=== PATIENT | male | born 1985 | race Caucasian/White ===

== ENCOUNTER 2019-04-04 01:51 | Emergency (ER) | payer SELFPAY ==
[~2019-04-04] VITALS: Ht 167.6 cm; Wt 68.2 kg
[2019-04-04 02:05] VITALS: Ht 167.6 cm; Wt 68.2 kg
[2019-04-04] MEDS ORDERED: ACET-141 PO (02:50)
--- NOTE | 2019-04-04 03:49 | PSY ---
Date/Time of Note Date/Time of Note DATE: 04/04/19 TIME: 12:24 Psychiatric Subjective Eval Consent Pt consented to telemedicine: Yes Subjective Evaluation Patient location: emergency Chief Complaint: BIB RA 881 C/O AUDITORY HALLUCINATIONS X7 HOURS Reason for consult: Disposition and tx recommendations History of present illness Mr. Moise is a 33 yo man who has denied any psychiatric history. He was brought in by EMS after he called 911 saying that he was hearing voices. In the ED he has been noted to be tearful, fearful, distressed. On interview, Mr. Moise says that he started to hear people in the home that he shares says "unspeakable" things about him. He heard them through his closed door. They were threatening to kill him. This led him to call 911. He says that in the ED he has continued to hear voices telling him that he is going to . He appears distraught repeating that he does not want to , that he wants to live. He denies SI. He denies HI. He says that he has never experiencing anything like this before. Started about 8 hours ago. Denies substance use other than o ccasional beer not to excess. UDS negative. Alcohol <10. He says that he did not sleep well recently but insists that he has been feeling fine until earlier today. He appears to be smiling one minute and tearful the next. Past psychiatric history Denied Hospitalization: no Family History none reported Medical history none reported Allergies: Coded Allergies: No Known Allergy (Unverified , 04/04/19) Substance Abuse Substance use: No known substance abuse Substance abuse history: No Prior substance abuse treatmen: No Social History Marital status: Occupation/Half-Way: manual labor Psychiatric Objective Eval Review of Systems: Review of Systems: Not Applicable Physical Examination: Physical Examination: Not Applicable Mental Status Examination: Appearance: Groomed Eye Contact: Other (strong) Psychomotor Activity: Agitated Behavior: Guarded Speech: Pressured AFFECT: Anxious, Intense Mood: Anxious Though Process: Circumstantial Thought Content: Delusions, Hallucinations Suicidal: No Homicidal: No On 72 hour hold: No Orientation: x3 Cognition: Alert Insight: Impared Judgement: Impared Attention Span: Distractible Laboratory Results Laboratory Tests Test 04/04/19 02:04 White Blood Count 9.0 10^3/ul Red Blood Count 5.04 10^6/ul Hemoglobin 16.0 g/dl Hematocrit 47.2 % Mean Corpuscular Volume 93.7 fl Mean Corpuscular Hemoglobin 31.7 pg Mean Corpuscular Hemoglobin Concent 33.9 g/dl Red Cell Distribution Width 14.2 % Platelet Count 188 10^3/UL Mean Platelet Volume 10.4 fl Immature Granulocytes % 0.200 % Neutrophils % 83.7 % Lymphocytes % 10.5 % Monocytes % 5.2 % Eosinophils % 0.0 % Basophils % 0.4 % Nucleated Red Blood Cells % 0.0 /100WBC Immature Granulocytes # 0.020 10^3/ul Neutrophils # 7.6 10^3/ul Lymphocytes # 1.0 10^3/ul Monocytes # 0.5 10^3/ul Eosinophils # 0.0 10^3/ul Basophils # 0.0 10^3/ul Nucleated Red Blood Cells # 0.0 10^3/ul Urine Color YELLOW Urine Clarity CLEAR Urine pH 7.0 Urine Specific [place] 1.010 Urine Ketones TRACE mg/dL Urine Nitrite NEGATIVE mg/dL Urine Bilirubin NEGATIVE mg/dL Urine Urobilinogen 1+ mg/dL Urine Leukocyte Esterase NEGATIVE Tisha/ul Urine Hemoglobin NEGATIVE mg/dL Urine Glucose 1+ mg/dL Urine Total Protein NEGATIVE mg/dl Sodium Level 142 mmol/L Potassium Level 4.0 mmol/L Chloride Level 103 mmol/L Carbon Dioxide Level 26 mmol/L Anion Gap 13 Blood Urea Nitrogen 9 mg/dl Creatinine 0.87 mg/dl Est Glomerular Filtrat Rate mL/min > 60 mL/min Glucose Level 111 mg/dl Calcium Level 9.5 mg/dl Total Bilirubin 0.5 mg/dl Direct Bilirubin 0.00 mg/dl Indirect Bilirubin 0.5 mg/dl Aspartate Amino Transf (AST/SGOT) 52 IU/L Alanine Aminotransferase (ALT/SGPT) 30 IU/L Alkaline Phosphatase 105 IU/L Total Protein 8.4 g/dl Albumin 5.1 g/dl Globulin 3.30 g/dl Albumin/Globulin Ratio 1.54 Salicylates Level < 1.0 mg/dl Urine Opiates Screen Negative Acetaminophen Level < 10.0 ug/ml Urine Barbiturates Negative Urine Amphetamines Screen Negative Urine Benzodiazepines Screen Negative Urine Cocaine Screen Negative Urine Cannabinoids Negative Ethyl Alcohol Level < 10.0 mg/dl Assessment and Plan Assessment/Diagnosis Diagnosis 33 yo man who denies any psychiatric history, presenting with symptoms of psychosis, including AHs and delusional beliefs, and a labile affect, occurring in the context of UDS negative. He insists that these symptoms started within the past year, though reliability is unclear. What is clear is that Mr. Moise is distressed, paranoid, distraught, and meets criteria for 5150 for GD. Admission to inpatient psychiatry indicated for safety and stabilization. Recommendation/Plan Medication Management Start Ativan 1 mg po q6hrs as needed for anxiety, first dose now Start Zyprexa 5 mg po BID for psychosis, first dose now Multiple antipsychotics: No Discharge Disposition: Psychiatric inpatient Legal Status: Place involuntary hold KATERYNA SHEPHERD MD April 04, 2019 03:34
[2019-04-04] MEDS ORDERED: OLANZAPINE 5 MG TAB PO ONE (04:00)
[2019-04-04] MEDS ORDERED: LORAZEPAM 1 MG TAB PO ONE (04:00)
--- NOTE | 2019-04-04 05:49 | ERD ---
ER Documentation Chief Complaint Chief Complaint BIB RA 881 C/O AUDITORY HALLUCINATIONS X7 HOURS HPI 33-year-old male brought in by rescue for auditory changes from 7 hours. Says he was attending to kill himself. Denies history of psychiatric disease. Denies any other current issues ROS All systems reviewed and are negative except as per history of present illness. Medications Home Meds Reported Medications Acetaminophen* (Acetaminophen*) 500 MG Extra Strength Tablet, 500 MG PO Q4H PRN for PAIN AND OR ELEVATED TEMP, TAB 04/04/19 Allergies Allergies: Coded Allergies: No Known Allergy (Unverified , 04/04/19) PMhx/Soc Medical and Surgical Hx: pt denies Medical Hx, pt denies Surgical Hx Hx Alcohol Use: Yes Hx Substance Use: No Hx Tobacco Use: No Smoking Status: Never smoker Physical Exam Vitals Vital Signs Date Temp Pulse Resp B/P (MAP) Pulse Ox O2 O2 Flow FiO2 Time Delivery Rate 04/04/19 110 21 152/105 99 Room Air 05:38 (121) 04/04/19 97 20 170/99 99 Room Air 04:19 (122) 04/04/19 100.0 103 18 174/108 99 02:05 (130) Physical Exam Const: No acute distress Head: Atraumatic Eyes: Normal Conjunctiva ENT: Normal External Ears, Nose and Mouth. Neck: Full range of motion. No meningismus. Resp: Clear to auscultation bilaterally Cardio: Regular rate and rhythm, no murmurs Abd: Soft, non tender, non distended. Normal bowel sounds Skin: No petechiae or rashes Back: No midline or flank tenderness Ext: No cyanosis, or edema Neur: Awake and alert Psych: Normal Mood and Affect Result Diagram: 04/04/19 0204 04/04/19 0204 Results 24 hrs Laboratory Tests Test 04/04/19 02:04 White Blood Count 9.0 10^3/ul Red Blood Count 5.04 10^6/ul Hemoglobin 16.0 g/dl Hematocrit 47.2 % Mean Corpuscular Volume 93.7 fl Mean Corpuscular Hemoglobin 31.7 pg Mean Corpuscular Hemoglobin Concent 33.9 g/dl Red Cell Distribution Width 14.2 % Platelet Count 188 10^3/UL Mean Platelet Volume 10.4 fl Immature Granulocytes % 0.200 % Neutrophils % 83.7 % Lymphocytes % 10.5 % Monocytes % 5.2 % Eosinophils % 0.0 % Basophils % 0.4 % Nucleated Red Blood Cells % 0.0 /100WBC Immature Granulocytes # 0.020 10^3/ul Neutrophils # 7.6 10^3/ul Lymphocytes # 1.0 10^3/ul Monocytes # 0.5 10^3/ul Eosinophils # 0.0 10^3/ul Basophils # 0.0 10^3/ul Nucleated Red Blood Cells # 0.0 10^3/ul Urine Color YELLOW Urine Clarity CLEAR Urine pH 7.0 Urine Specific [place] 1.010 Urine Ketones TRACE mg/dL Urine Nitrite NEGATIVE mg/dL Urine Bilirubin NEGATIVE mg/dL Urine Urobilinogen 1+ mg/dL Urine Leukocyte Esterase NEGATIVE Tisha/ul Urine Hemoglobin NEGATIVE mg/dL Urine Glucose 1+ mg/dL Urine Total Protein NEGATIVE mg/dl Sodium Level 142 mmol/L Potassium Level 4.0 mmol/L Chloride Level 103 mmol/L Carbon Dioxide Level 26 mmol/L Anion Gap 13 Blood Urea Nitrogen 9 mg/dl Creatinine 0.87 mg/dl Est Glomerular Filtrat Rate mL/min > 60 mL/min Glucose Level 111 mg/dl Calcium Level 9.5 mg/dl Total Bilirubin 0.5 mg/dl Direct Bilirubin 0.00 mg/dl Indirect Bilirubin 0.5 mg/dl Aspartate Amino Transf (AST/SGOT) 52 IU/L Alanine Aminotransferase (ALT/SGPT) 30 IU/L Alkaline Phosphatase 105 IU/L Total Protein 8.4 g/dl Albumin 5.1 g/dl Globulin 3.30 g/dl Albumin/Globulin Ratio 1.54 Salicylates Level < 1.0 mg/dl Urine Opiates Screen Negative Acetaminophen Level < 10.0 ug/ml Urine Barbiturates Negative Urine Amphetamines Screen Negative Urine Benzodiazepines Screen Negative Urine Cocaine Screen Negative Urine Cannabinoids Negative Ethyl Alcohol Level < 10.0 mg/dl Current Medications Medications Dose Sig/Clive Start Time Status Last (Trade) Ordered Route PRN Stop Time Admin Dose Reason Admin Lorazepam 2 mg ONCE ONCE 04/04/19 DC 04/04/19 (Ativan) PO 04:00 04:03 04/04/19 04:01 Olanzapine 5 mg ONCE ONCE 04/04/19 DC 04/04/19 (Zyprexa) PO 04:00 04:03 04/04/19 04:01 Procedures/MDM Patient's behavioral symptoms have stabilized while in the department. Patient is medically cleared and appropriate for psychiatric evaluation and work up. No e/o neurologic, toxic, infectious, or metabolic cause. Patient was placed on physical here for psychosis. Currently pending U placement Departure Diagnosis: Primary Impression: Hallucinations Condition: Serious DELANEY CRUZ SolSamara April 04, 2019 05:49
[2019-04-04 22:31] VITALS: BP 149/107; PULSE 85; RESP 20
== END 2019-04-04 22:33 ==
LOC: E/R 01:51
DX: R44.0 Auditory hallucinations (principal)
CPT/HCPCS: 36415; 80053; 80307; 81003; 85025